=== PATIENT | male | born 1965 | race Caucasian/White ===

== ENCOUNTER 2021-10-04 11:16 | Emergency (ER) | payer OTHER ==
[2021-10-04 11:42] VITALS: BP 135/98; PULSE 73; TEMP 98.3; BMI 24.4
[2021-10-04] MEDS ORDERED: KETOROLAC TROMETHAMINE 30 MG/1 ML VIAL IM ONE (12:17)
[2021-10-04] MEDS ORDERED: KETOROLAC TROMETHAMINE 30 MG/1 ML VIAL ONE (12:27)
== END 2021-10-04 13:27 | disposition home or self-care (01) ==
LOC: JERFT 11:16
PROC: 3E0233Z Introduction of Anti-inflammatory into Muscle, Percutaneous Approach (ICD-10-PCS; principal; 2021-10-04)
DX: M79.10 Myalgia, unspecified site (principal)
CPT/HCPCS: 72050-TC-FY; 72070-TC-FY; 99284-25